=== PATIENT | male | born 1955 | race Caucasian/White ===

== ENCOUNTER 2021-08-28 08:24 | Outpatient (CLI) | payer OTHER, SELFPAY ==
--- NOTE | 2021-09-10 20:53 | WPDSLEEPSTUD ---
Sleep Study Date of Study: 08/28/21 Ordering Provider: Diana Scott Interpreting Physician: Ann Marie Vera MD Sleep Study Type: Split Polysomnogram Height: 1.8 m Weight: 119.748 kg Body Mass Index: 36.8 Neck Circumference (inches): 16.5 [place]: 4 Reason for Sleep Study Known obstructive sleep apnea on CPAP with a machine 12 years old Sleep History Xiang Ndiaye is a 66 year old man with a diagnosis of obstructive sleep apnea 12 years ago, and has used the same device since then. At times, his machine shuts off. He is here to qualify for a new device. Normal bedtime is between 9:00 p.m. to 10:00 p.m., falling asleep within 15 minutes, waking 2-4 times to go to the bathroom which he attributes to diuretics. He is able to return to sleep in 5 minutes. . He wakes at 6:30 am. Weekend schedule is the same. He estimates 8-9 hours of sleep per night. He does not take naps in the day, and short naps are not refreshing. He is drowsy in the morning for an hour after waking. He feels better in the morning compared to other times of day. He reports a weight loss of 160 lb in the last year. Habits: Former tobacco smoker. No caffeine. No alcohol or recreational drugs. [facility] Past Medical History Medical History (Updated 09/10/21 @ 21:07 by Ann Marie Vera MD) Arthritis Depression GERD (gastroesophageal reflux disease) Hypertension Obstructive sleep apnea PTSD (post-traumatic stress disorder) Social History Social History (Updated 09/10/21 @ 21:08 by Ann Marie Vera MD) Smoking status: Former smoker Alcohol intake: never Substance use: never Medications Medications: Vitamin D, 50 mcg a day/2000 IU Digoxin 0.25 mg daily Diltiazem XR 120 mg a day Famotidine 40 mg 0.5 tablets twice a day Furosemide 40 mg 0.5 tablets daily Magnesium 250 mg daily Metoprolol succinate ER 50 mg 2 tablets in the morning and 1 at night Montelukast 10 mg at night Sleep Procedure This test was performed using the [facility] [employer] multiple channel system including EOG, EEG, submental EMG, EKG, nasal and oral airflow using thermistors and nasal pressure sensors, chest and abdominal belts for body position data, and pulse oximetry. Video monitoring was also performed. The study was scored using CMS guidelines. After the baseline portion, the patient met criteria for a titration with an apnea hypopnea index of 9.3. He started with a ResMed N 30I nasal mask, then switched to P 30I nasal pillows. The initial pressure was 5 cm with 3 EPR and was titrated to 7 cm with 3 EPR. At this pressure, there were 107.5 minutes in bed, 9 minutes awake, 73.5 minutes in NREM, and 25 minutes in REM. The sleep efficiency was 91.6%. There were 4 hypopneas with an AHI of 2.4. The lowest saturation was 88%. This is the optimal pressure. Sleep Architecture Baseline The recording time is 232.2 minutes. The total sleep time is 142 minutes. The sleep efficiency is 61.2%. The sleep latency is 2.2 minutes,. There was no REM. The patient had 88 minutes of wake after sleep onset. Sleep architecture showed 18% stage I sleep, 82 % stage II sleep, absence of stage II sleep and absence of stage REM. Titration The recording time is 232.9 minutes. The total sleep time is 157.5 minutes. The sleep efficiency is 67.6%. The sleep latency is 5 minutes. The REM latency is 114.5 minutes. The patient had 70 minutes of wake after sleep onset. Sleep architecture showed 16% stage I sleep, 68.9 % stage II sleep, 4.8% stage II sleep and 10.2% stage REM. Respiratory Analysis Baseline The apnea hypopnea index during baseline was 9.3 associated with 22 events. There were no events during REM. In supine non-REM, there were 21 hypopneas for an index of 12.3 and 1 hypopnea in nonsupine non-REM for an index of 1.5. Titration The apnea-hypopnea index was 2.7 associated with 7 events. In supine REM there were 3 hypopneas for an index of 7.7. In nonsupine REM there were 2 hypopneas fo
[2021-09-10 21:59] VITALS: BMI 36.8
== END 2021-08-29 06:43 | disposition home or self-care (01) ==
LOC: ANHCSM 08:29
DX: G47.33 Obstructive sleep apnea (adult) (pediatric) (principal)
CPT/HCPCS: 95811